=== PATIENT | male | born 1970 | race Caucasian/White ===

== ENCOUNTER 2016-07-28 11:26 | Emergency (ER) | payer OTHER ==
[2016-07-28 11:46] VITALS: BP 126/94; PULSE 85; TEMP 98.1; O2SAT 97
--- NOTE | 2016-07-28 12:33 | DX ---
Right Ankle, Three Views History: Pain in Achilles area, post trauma. Findings: There is a prominent posterior calcaneal spur. No acute fracture, ankle joint effusion, or dislocation is identified. 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 The ankle mo rtise remains normal in width and normally aligned although there is mild chronic valgus angulation o f approximately 9 degrees. Impression: 1. Posterior calcaneal spur. 2. Fusion of the distal tibia and fibula likely related to remote trauma.
--- NOTE | 2016-07-28 13:09 | EDPHY ---
H & P Stated Complaint: r ankle injury running up stairs HPI/ROS: Chief complaint: Achilles tendon injury History of present illness: This is a 45-year-old male who presents to the emergency department for what he believes is an Achilles tendon injury. Patient was running up some stairs when he felt and heard a pop in the back of his right ankle. Since then he has had pain in this region. It is difficult to move his ankle and ambulate. He denies other associated signs or symptoms including no open wounds, no paresthesias or abnormal coolness in the extremity , no direct trauma reported. No other complaints at this time. - Personal History Current Tetanus/Diphtheria Vaccine: Yes Current Tetanus Diphtheria and Acellular Pertussis (TDAP): Yes - Medical/Surgical History Hx Asthma: No Hx Chronic Respiratory Disease: No Hx Diabetes: No Hx Cardiac Disease: No Hx Renal Disease: No Hx Cirrhosis: No Hx Alcoholism: No Hx HIV/AIDS: No Hx Splenectomy or Spleen Trauma: No Other PMH: PSH: denies;. PMH: denies - Social History Smoking Status: Never smoked - Physical Exam Exam: General appearance: Alert, nontoxic. Musculoskeletal: There is tenderness over the Achilles tendon region. I do not appreciate a defect. The knee, the rest of the lower leg and ankle as well as the foot are nontender. He is able to move the knee and digits of his foot without difficulty. He is moving his ankle in all [place] although it is uncomfortable. Vascular exam: Normal pulses and capillary refill in the foot Neurologic exam: The patient has normal sensation and motor function distal to the injury. Constitutional: Initial Vital Signs Temperature (C) 36.7 C 07/28/16 11:44 Heart Rate 85 07/28/16 11:44 Respiratory Rate 18 07/28/16 11:44 Blood Pressure 126/94 H 07/28/16 11:44 O2 Sat (%) 97 07/28/16 11:44 O2 Delivery Mode Room Air Allergies/Adverse Reactions: No Known Allergies Allergy (Unverified 07/28/16 11:43) Home Medications: Medication Instructions Recorded Advil 07/28/16 Medical Decision Making - Diagnostics Imaging: X-ray series left ankle is negative for acute findings Procedures: Procedure: Splint placement. A posterior short-leg splint with plantar flexion of the ankle was applied. After application of the splint I returned and re-examined the patient. The splint was adequately immobilizing the joint and distal to the splint the patient's circulation and sensation was intact. Patient was given crutches ED Course/Re-evaluation: Patient seen under the supervision of my secondary supervising physician Dr. Lior Marmolejo. Patient presents to the emergency department for pain in his Achilles tendon region of his right leg after running up stairs. His foot is neurovascularly intact. X-ray series of the ankle is negative. I am concerned for an Achilles tendon injury. He is splinted and given crutches. He is asked to remain nonweightbearing. He states he is returning to [place] where he lives [facility]. He has already made an appointment with an orthopedic doctor on Saturday as his girlfriend works at an orthopedic doctor's office. Home care is discussed with the patient. Return precautions are given. Patient voiced understanding and agreement with plan. Differential Diagnosis: Included but not limited to contusion, sprain or strain, Achilles tendon rupture , fracture Departure - Departure Disposition: Home, Routine, Self-Care Clinical Impression: Achilles rupture Condition: Good Instructions: Achilles Tendon Rupture (ED) Additional Instructions: Follow-up with Orthopedics when he returns home next week You may not weight bear on this extremity until told you can by Orthopedics If symptoms worsen or new symptoms developed go to the closest emergency department Referrals: OUT OF STATE,. [Primary Care Provider] - As per Instructions Glenn Serna MD [Medical Doctor] - As per Instructions
[2016-07-28 13:54] VITALS: RESP 16
== END 2016-07-28 13:54 | disposition home or self-care (01) ==
DX: S86.011A Strain of right Achilles tendon, initial encounter (principal); X58.XXXA Exposure to other specified factors, initial encounter; Y93.02 Activity, running